=== PATIENT | male | born 1995 | race Caucasian/White ===

== ENCOUNTER 2017-04-19 15:52 | Emergency (ER) | payer BC, OTHER ==
[2017-04-19 16:08] VITALS: BP 145/98
--- NOTE | 2017-04-19 16:56 | UC ---
Abdominal Pain Male HPI - HPI Summary HPI Summary: 21 yo male with onset of periumbilical pain 2 evenings ago nausea anorexia pain is constant and usually mild but at times is severe increases with movement last PM both testicles mildly ached - History of Current Complaint Chief Complaint: UCGU Stated Complaint: ABDOMINAL PAIN/TESTES PAIN Time Seen by Provider: 04/19/17 16:15 Hx Obtained From: Patient Onset/Duration: Gradual Onset, Lasting Days Timing: Constant Severity Initially: Mild Severity Currently: Mild Pain Intensity: 3 - at times a 8-10 Pain Scale Used: 0-10 Numeric Location: Epigastric - /periumbilical Radiates: No Character: Aching, Dull Aggravating Factor(s):: Food, Movement Alleviating Factor(s): Rest Associated Signs And Symptoms: Positive: Nausea Male Torso: 1 - states it hurts here 2 - most tender here - Risk Factors Testicular Torsion: Negative Cardiac Risk Factors: Negative - Allergies/Home Medications Allergies/Adverse Reactions: Allergies Allergy/AdvReac Type Severity Reaction Status Date / Time No Known Allergies Allergy Verified 04/19/17 16:08 Home Medications: Home Medications Bismuth Subsalicylate [Pepto-Bismol Max Strength] 30 ml PO ONCE PRN 04/19/17 [ History Confirmed 04/19/17] Multiple Vitamins W/ Minerals [Multivitamin Adults] 1 tab PO DAILY 04/19/17 [ History Confirmed 04/19/17] [place]-3 Fatty Acids [Fish Oil] 500 mg PO DAILY 04/19/17 [History Confirmed 04/19] Simethicone [Gas-X Extra Strength] 125 mg PO ONCE PRN 04/19/17 [History Confirmed 04/19/17] PMH/Surg Hx/FS Hx/Imm Hx Previously Healthy: Yes - Surgical History Surgical History: None - Family History Known Family History: Positive: Hypertension Negative: Cardiac Disease, Diabetes, Renal Disease - Social History Alcohol Use: Occasionally Substance Use Type: None Smoking Status (MU): Never Smoked Tobacco Review of Systems Constitutional: Negative Skin: Negative Eyes: Negative ENT: Negative Respiratory: Negative Cardiovascular: Negative Gastrointestinal: Abdominal Pain, Nausea Genitourinary: Negative Motor: Negative Neurovascular: Negative Musculoskeletal: Negative Neurological: Negative Psychological: Negative All Other Systems Reviewed And Are Negative: Yes Physical Exam Triage Information Reviewed: Yes Appearance: Well-Appearing, No Pain Distress, Well-Nourished Vital Signs: Initial Vital Signs Temp 99 F 04/19/17 16:03 Pulse 88 04/19/17 16:03 Resp 20 04/19/17 16:03 BP 145/98 04/19/17 16:03 Pulse Ox 100 04/19/17 16:03 Vital Signs Reviewed: Yes Eyes: Positive: Conjunctiva Clear ENT: Positive: Hearing grossly normal, Pharynx normal. Negative: Pharyngeal erythema, Nasal congestion, Nasal drainage, Tonsillar swelling, Tonsillar exudate, Trismus, Muffled/hoarse voice Neck: Positive: Supple, Nontender, No Lymphadenopathy Respiratory: Positive: Lungs clear, Normal breath sounds, No respiratory distress, No accessory muscle use Cardiovascular: Positive: RRR, No Murmur. Negative: Tachycardia, Bradycardia Abdomen Description: Positive: No Organomegaly, Soft, McBurney's Point Tenderness - +++. Negative: Nontender, CVA Tenderness (R), CVA Tenderness (L), Hernia @, Pulsatile Mass, Splenomegaly Musculoskeletal: Positive: ROM Intact, No Edema Neurological: Positive: Alert Psychological Exam: Normal Skin Exam: Normal Abd Pain Male Course/Dx - Course Course Of Treatment: urine dip : no blood/wbcs/glucose. I suggested he go to the ER for evaluation to r/o appendicitis. He declines EMS transfer and signed AMA form. Advised not to eat or drink and go straight to the ER. I called [facility] ER and spoke with "Fransiscot the provider" and relayed my concerns. They will be expecting him. - Differential Dx/Clinical Impression Provider Diagnoses: abdominal pain. RLQ abdominal tenderness , R/O appendicitis Discharge - Discharge Plan Condition: Good Disposition: AGAINST MEDICAL ADVICE Referrals: Kirill Chery MD [Primary Care Provider] -
== END 2017-04-19 16:53 | disposition left against medical advice (07) ==
LOC: UCCORT 15:52
DX: R10.31 Right lower quadrant pain (principal)
CPT/HCPCS: 81003; 99202; G0463

== ENCOUNTER 2017-04-28 12:30 | Emergency (ER) | payer OTHER ==
[~2017-04-28 12:30] MED LIST: Influenza VAC *QUAD* 2017-18* 0.5 ML SYRINGE IM ONE
[2017-04-28 12:43] VITALS: BP 158/92
--- NOTE | 2017-04-28 13:17 | UC ---
Skin Complaint HPI - HPI Summary HPI Summary: 21 yo male was seen by me 04/19 with RLQ abd pain Sent to [facility] Was admitted for a few days Was told his CT of the abd and pelvis was c/w Crohns disease Has an appt for next Wednesday with GI doc Developed rash in hospital and was started on prednisone 60 mg to start now on 20mg pred a day has muscle aches some intermittent diarrhea no f/c abd pain gone - History of Current Complaint Chief Complaint: UCRash Time Seen by Provider: 04/28/17 12:56 Stated Complaint: RASH Hx Obtained From: Patient Onset/Duration: Sudden Onset, Lasting Days Onset Severity: Mild Current Severity: Severe Pain Intensity: 0 Pain Scale Used: 0-10 Numeric Location: Other - worse thighs and ankles Character: Redness, Raised Aggravating: Nothing Alleviating: Nothing Associated Signs & Symptoms: Positive: Rash - Allergy/Home Medications Allergies/Adverse Reactions: Allergies Allergy/AdvReac Type Severity Reaction Status Date / Time No Known Allergies Allergy Verified 04/28/17 12:43 Home Medications: Home Medications Pantoprazole TAB (NF) [Protonix TAB (NF)] 1 tab PO DAILY 04/28/17 [History Confirmed 04/28/17] predniSONE TAB* [Deltasone TAB*] 20 mg PO DAILY 04/28/17 [History Confirmed 02/06] Review of Systems Constitutional: Negative Skin: Rash Eyes: Negative ENT: Negative Respiratory: Negative Cardiovascular: Negative Gastrointestinal: Negative Genitourinary: Negative Motor: Negative Neurovascular: Negative Musculoskeletal: Negative Neurological: Negative Psychological: Negative All Other Systems Reviewed And Are Negative: Yes PMH/Surg Hx/FS Hx/Imm Hx Previously Healthy: Yes - Surgical History Surgical History: None - Family History Known Family History: Positive: Hypertension, Other - no FHx of Crohns or UC Negative: Cardiac Disease, Diabetes, Renal Disease - Social History Alcohol Use: Occasionally Substance Use Type: None Smoking Status (MU): Never Smoked Tobacco Physical Exam Triage Information Reviewed: Yes Appearance: Well-Appearing, No Pain Distress, Well-Nourished Vital Signs: Initial Vital Signs Temp 99 F 04/28/17 12:37 Pulse 95 04/28/17 12:37 Resp 15 04/28/17 12:37 BP 158/92 04/28/17 12:37 Pulse Ox 99 04/28/17 12:37 Vital Signs Reviewed: Yes Eyes: Positive: Conjunctiva Clear ENT: Positive: Hearing grossly normal, Pharynx normal. Negative: Nasal congestion, Nasal drainage, Tonsillar exudate, Trismus, Muffled/hoarse voice Neck: Positive: Supple, Nontender Respiratory: Positive: Lungs clear, Normal breath sounds, No respiratory distress, No accessory muscle use Cardiovascular: Positive: RRR, No Murmur Abdomen Description: Positive: Nontender, No Organomegaly Psychological Exam: Normal Skin Exam: Other - palpable purpura Course/Dx - Diagnoses Provider Diagnoses: vasculitis. ?Crohns disease Discharge - Discharge Plan Condition: Stable Disposition: HOME Patient Education Materials: Purpura (ED) Referrals: Kirill Chery MD [Primary Care Provider] - 2 Days Additional Instructions: continue prednisone taper see your MD this week see gi doc Wednesday as planned to ER for new or worsening symptoms
[2017-04-28 17:02] LABS: Hematocrit 44 % (42-52); Hemoglobin 14.9 g/dl (14.0-18.0); Mean Corpuscular HGB Conc 34 g/dl (31-36); Mean Corpuscular Hemoglobin 31 pg (27-31); Mean Corpuscular Volume 92 fL (80-94); Mean Platelet Volume 8 um3 (7.4-10.4); Red Blood Count 4.75 10^6/ul (4.0-5.4); Red Cell Distribution Width 12 % (10.5-15)
[2017-04-28 18:39] LABS: Erythrocyte Sed Rate 10 mm/Hr (0-14)
[2017-04-28 20:19] LABS: Albumin 4.1 g/dL (3.2-5.2); BUN/Creatinine Ratio 13.3 (8-20); Calcium 9.2 mg/dL (8.6-10.3); EGFR African American 103.4 (>60); EGFR Non-African American 80.4 (>60); Globulin 3.1 g/dL (2-4); Potassium 3.9 mmol/L (3.5-5.0); Total Bilirubin 0.5 mg/dL (0.2-1.0); Total Protein 7.2 g/dL (6.4-8.9)
--- NOTE | 2017-04-29 11:00 | UC ---
Progress - Progress Note Progress Note: WBC 11.0 Will call patient to follow up and check on condition. Carson Brumfield MD
== END 2017-04-28 13:37 | disposition home or self-care (01) ==
LOC: UCEAST 12:30
DX: I77.6 Arteritis, unspecified (principal); Z23 Encounter for immunization
CPT/HCPCS: 36415; 80053; 81003; 85025; 85652; 90686; 99211; G0463

== ENCOUNTER 2017-04-29 08:58 | Inpatient (IN) | payer OTHER ==
[2017-04-29] MEDS ORDERED: Ondansetron INJ* 2 MG/ML VIAL IV ONE (11:32)
[2017-04-29] MEDS ORDERED: Morphine INJ* 2 MG/ML 1 ML CARPUJECT IV ONE ×2 (11:32→12:32)
[2017-04-29 12:14] LABS: Hematocrit 45 % (42-52); Hemoglobin 15.4 g/dl (14.0-18.0); Mean Corpuscular HGB Conc 34 g/dl (31-36); Mean Corpuscular Hemoglobin 32 pg (27-31); Mean Corpuscular Volume 93 fL (80-94); Mean Platelet Volume 7 um3 (7.4-10.4); Red Blood Count 4.84 10^6/ul (4.0-5.4); Red Cell Distribution Width 13 % (10.5-15); White Blood Count 18.3 10^3/ul (3.5-10.8)
[2017-04-29 12:25] LABS: Albumin 4.1 g/dL (3.2-5.2); BUN/Creatinine Ratio 17.6 (8-20); C Reactive Protein 19.37 mg/L (< 5.00); Calcium 9.2 mg/dL (8.6-10.3); EGFR African American 132.8 (>60); EGFR Non-African American 103.2 (>60); Globulin 3.5 g/dL (2-4); Magnesium 2.2 mg/dL (1.9-2.7); Total Bilirubin 0.5 mg/dL (0.2-1.0); Total Protein 7.6 g/dL (6.4-8.9)
--- NOTE | 2017-04-29 12:36 | ED ---
Abdominal Pain/Male - HPI Summary HPI Summary: Patient presents to the ED with CC of severe 9/10 periumbilical abdominal pain which began this morning and associated with N/V/D. He notes to 3x vomiting without hematemesis, diarrhea without melena BRB. Color is brown and watery since this morning x 2. He was seen at yesterday for a diffuse morbilloform macular rash which appeared to be associated with a IBD rash. He was started on Prednisone the week before, and was told to continue his taper. He was seen at [facility] last week and diagnosed with possible Crohn colitis based both on CT scan and small bowel follow through. No family history of IBD. ESR was negative and CRP was 40. He was referred to DR. Amin for which he has an appt on Wednesday. Small bowel xray showed mild mucosal edema noted in the distal ileum with sparing of the terminal ileum consistent with ileitis. No abnormal extravasation of fistulous communications seen. no evidence of bowel obstruction with prompt clearance of the gastrografin into the cecum within 30 minutes. WBC at that time 10.9, today at 18.0. Denies fevers, sweats, chills or weakness. He has been otherwise healthy until 2 weeks ago. - History of Current Complaint Chief Complaint: EDAbdPain Stated Complaint: ABD PAIN,VOMITTING,RASH Time Seen by Provider: 04/29/17 11:24 Hx Obtained From: Patient Onset/Duration: Sudden Onset Timing: Constant Severity Initially: Severe Severity Currently: Severe Pain Intensity: 8 Pain Scale Used: 0-10 Numeric Location: Umbilical Radiates: No Character: Dull, Cramping Aggravating Factor(s): Nothing Alleviating Factor(s): Vomiting - briefly, Other: - diarrhea, briefly Associated Signs And Symptoms: Positive: Vomiting, Diarrhea - Risk Factors Testicular Torsion: Negative Cardiac Risk Factors: Negative - Allergies/Home Medications Allergies/Adverse Reactions: Allergies Allergy/AdvReac Type Severity Reaction Status Date / Time No Known Allergies Allergy Verified 04/28/17 12:43 PMH/Surg Hx/FS Hx/Imm Hx Previously Healthy: Yes - Immunization History Hx Pertussis Vaccination: No Immunizations Up to Date: Unable to Obtain/Confirm Infectious Disease History: No Infectious Disease History: Denies: Traveled Outside the [place] in Last 30 Days - Family History Known Family History: Positive: Hypertension, Other - no FHx of Crohns or UC Negative: Cardiac Disease, Diabetes, Renal Disease - Social History Occupation: Employed Full-time Lives: With Family Alcohol Use: Occasionally Hx Substance Use: No Substance Use Type: Reports: None Hx Tobacco Use: No Smoking Status (MU): Never Smoked Tobacco Review of Systems Constitutional: Negative Negative: Fever, Chills, Fatigue, Skin Diaphoresis Eyes: Negative Cardiovascular: Negative Respiratory: Negative Positive: Abdominal Pain, Vomiting, Diarrhea, Nausea Genitourinary: Negative Positive: no symptoms reported, see HPI. Negative: burning, discharge Musculoskeletal: Negative Negative: Arthralgia, Myalgia, Decreased ROM Positive: Other - diffuse morbilloform macular rash to the bilateral lower extremities since 2 days ago Neurological: Negative Psychological: Normal All Other Systems Reviewed And Are Negative: Yes Physical Exam Triage Information Reviewed: Yes Vital Signs On Initial Exam: Initial Vitals Temp Pulse Resp BP Pulse Ox 99.1 F 82 20 167/100 98 04/29/17 09:11 04/29/17 09:11 04/29/17 09:11 04/29/17 09:11 04/29/17 09:11 Vital Signs Reviewed: Yes Appearance: Positive: Well-Appearing, Well-Nourished Skin: Positive: Warm, Skin Color Reflects Adequate Perfusion Head/Face: Positive: Normal Head/Face Inspection Eyes: Positive: EOMI, TJ, Conjunctiva Clear Neck: Positive: Supple, Nontender, No Lymphadenopathy Respiratory/Lung Sounds: Positive: Clear to Auscultation, Breath Sounds Present Cardiovascular: Positive: RRR, Pulses are Symmetrical in both Upper and Lower Extremities Abdomen Description: Positive: Soft, Guarding. Negative: No Organomegaly, Bruit , CVA Tenderness (R), CVA Tenderness (L) Musculoskeletal: Positive: Normal, Strength/ROM Intact Neurological: Positive: Sensory/Motor Intact, Alert, Oriented to Person Place, Time, Speech Normal Psychiatric: Positive: Normal AVPU Assessment: Alert - [place] Coma Scale Coma Scale Total: 15 Diagnostics - Vital Signs Vital Signs Temp Pulse Resp BP Pulse Ox 04/29/17 11:48 16 04/29/17 11:04 98.2 F 84 16 160/93 96 04/29/17 09:11 99.1 F 82 20 167/100 98 - Laboratory Lab Results: Lab Results 04/29/17 04/29/17 04/29/17 Range/Units 11:47 11:47 11:47 WBC 18.3 H (3.5-10.8) 10^3/ul RBC 4.84 (4.0-5.4) 10^6/ul Hgb 15.4 (14.0-18.0) g/dl Hct 45 (42-52) % MCV 93 (80-94) fL MCH 32 H (27-31) pg MCHC 34 (31-36) g/dl RDW 13 (10.5-15) % Plt Count 295 (150-450) 10^3/ul MPV 7 L (7.4-10.4) um3 Neut % (Auto) 83.1 H (38-83) % Lymph % (Auto) 8.2 L (25-47) % [place] % (Auto) 7.6 (1-9) % Eos % (Auto) 0.9 (0-6) % Baso % (Auto) 0.2 (0-2) % Absolute Neuts (auto) 15.2 H (1.5-7.7) 10^3/ul Absolute Lymphs (auto) 1.5 (1.0-4.8) 10^3/ul Absolute Monos (auto) 1.4 H (0-0.8) 10^3/ul Absolute Eos (auto) 0.2 (0-0.6) 10^3/ul Absolute Basos (auto) 0 (0-0.2) 10^3/ul Absolute Nucleated RBC 0 10^3/ul Nucleated RBC % 0 Sodium 137 (133-145) mmol/L Potassium 4.0 (3.5-5.0) mmol/L Chloride 103 (101-111) mmol/L Carbon Dioxide 26 (22-32) mmol/L Anion Gap 8 (2-11) mmol/L BUN 16 (6-24) mg/dL Creatinine 0.91 (0.67-1.17) mg/dL Est GFR ( Amer) 132.8 (>60) Est GFR (Non-Af Amer) 103.2 (>60) BUN/Creatinine Ratio 17.6 (8-20) Glucose 95 (70-100) mg/dL Lactic Acid 1.5 (0.5-2.0) mmol/L Calcium 9.2 (8.6-10.3) mg/dL Magnesium 2.2 (1.9-2.7) mg/dL Total Bilirubin 0.50 (0.2-1.0) mg/dL AST 37 (13-39) U/L ALT 53 H (7-52) U/L Alkaline Phosphatase 65 (34-104) U/L Total Creatine Kinase 563 H (10-223) U/L C-Reactive Protein 19.37 H (< 5.00) mg/L Total Protein 7.6 (6.4-8.9) g/dL Albumin 4.1 (3.2-5.2) g/dL Globulin 3.5 (2-4) g/dL Albumin/Globulin Ratio 1.2 (1-3) Lipase 17 (11.0-82.0) U/L Result Diagrams: 04/29/17 11:47 04/29/17 11:47 Lab Statement: Any lab studies that have been ordered have been reviewed, and results considered in the medical decision making process. Re-Evaluation - Re-Evaluation First Eval Change: Unchanged - 4mg IV morphine Second Eval Change: Improved - 4mg Iv morphine to improve pain Abdominal Pain Fem Course/Dx - Course Course Of Treatment: Patient presents to the ED with CC of severe 9/10 periumbilical abdominal pain which began this morning and associated with N/V/ D. He notes to 3x vomiting without hematemesis, diarrhea without melena BRB. Color is brown and watery since this morning x 2. He was seen at yesterday for a diffuse morbilloform macular rash which appeared to be associated with a IBD rash. He was started on Prednisone the week before, and was told to continue his taper. He was seen at [facility] last week and diagnosed with possible Crohn colitis based both on CT scan and small bowel follow through. No family history of IBD. ESR was negative and CRP was 40. He was referred to DR. Amin for which he has an appt on Wednesday. Small bowel xray showed mild mucosal edema noted in the distal ileum with sparing of the terminal ileum consistent with ileitis. No abnormal extravasation of fistulous communications seen. no evidence of bowel obstruction with prompt clearance of the gastrografin into the cecum within 30 minutes. WBC at that time 10.9, today at 18.0. Denies fevers, sweats, chills or weakness. He has been otherwise healthy until 2 weeks ago. D/t CT scan, we did not perform another CT at this time. Spoke with Dr. Washington who agreed to observe patient. No GI coverage at this time. Gave (2) 4mg IV morphine to bring pain from 10/10 to 5/10. Zofran 4mg IV with effect. He is resting comfortably. is at bedside. BP elevated most likely d/t pain of abdomen - no cardiac history. - Diagnoses Differential Diagnosis/HQI/PQRI: Bowel Obstruction, Ischemic Bowel, Other - IBD , Crohns, Ulcerative Colitis, Ischemic Colitis, Viral gastroenteritis, Morbilloform Rash Provider Diagnoses: Combined abdominal pain, vomiting, and diarrhea Discharge - Discharge Plan Condition: Stable Disposition: ADMITTED TO [facility]
[2017-04-29 14:02] LABS: Erythrocyte Sed Rate 11 mm/Hr (0-14)
[2017-04-29] MEDS ORDERED: HYDROcodone/ACETAMIN 5-325 MG* 1 TAB PO PRN (15:12)
[2017-04-29] MEDS ORDERED: Acetaminophen TAB* 325 MG PO PRN (15:12)
[2017-04-29] MEDS ORDERED: Ondansetron INJ* 2 MG/ML VIAL IV PRN (15:13)
[2017-04-29] MEDS: Morphine INJ* 4 MG/ML 1 ML CARPUJECT IV PRN ×2 (15:57→21:33)
[2017-04-29] MEDS: NS 0.9% 1000 ML* 1,000 ML IV SCH (16:41)
[2017-04-29] MEDS: Ciprofloxacin 400MG IVPREMIX(* 400 MG/200 ML BAG IVPB SCH (16:44)
[2017-04-29] MEDS: metroNIDAZOLE IV 500 MG/100ML* 500 MG/100 ML BAG IVPB SCH (17:51)
--- NOTE | 2017-04-29 21:38 | HP ---
CC: Dr. Chery * HISTORY AND PHYSICAL: DATE OF ADMISSION: 04/29/17 PRIMARY CARE PROVIDER: Dr. Chery (the patient has never seen before). CHIEF COMPLAINT: Abdominal pain. HISTORY OF PRESENT ILLNESS: Mr. Mosquera is a 21-year-old male who on 04/19/17 presented to Urgent Care for evaluation of periumbilical to right lower quadrant abdominal pain. The patient at that time was felt to have possibly appendicitis and therefore was sent to the emergency room at [place] for evaluation. In the ER at [place], the patient underwent a CT scan of the abdomen and pelvis, which revealed bowel wall thickening noted within several loops of small bowel within the right lower abdominal quadrant. The differential diagnoses include infectious and an inflammatory process. Slightly increased number of normal appearing lymph nodes within the mesentery was noted. The patient was admitted to [facility] for evaluation. He was seen in consultation by Dr. Viramontes. Dr. Viramontes recommended a small bowel series with Gastrografin. The patient underwent this test, which revealed transient time to the small bowel being within normal limits. Mild mucosal edematous changes are noted in the ileum with sparing of the terminal ileum, which is similar in appearance to 04/19/17. The small bowel distention is not seen. The mild mucosal edema noted in the distal ileum with sparing of the terminal ileum was felt to be consistent with ileitis. The differential diagnoses included infectious ileitis and inflammatory bowel disease. The patient was started on prednisone taper and set up to see Dr. Viramontes as an outpatient. The patient states during the period of time, his abdominal pain did improve. He was also having some diarrhea and stool studies on this were negative for infection. Over the last 1 week, the patient noted that his abdominal remained resolved; however, rash that began while he was in the hospital at [place] progressively worsened to the point where 2 nights ago, the rash was quite severe and therefore yesterday he presented to Urgent Care for evaluation of the rash. As the patient had been given presumptive diagnosis of possible Crohn's disease from [facility], it was felt that the rash could be an extraintestinal manifestations of Crohn's disease. The patient was recommended to continue on his prednisone taper and follow up with Dr. Viramontes as an outpatient. On 04/29/17, the patient represented to the emergency room with complaints of severe and much worsened abdominal pain. The patient states this morning, he had several episodes of diarrhea, which was nonbloody as well as 2 to 3 episodes of vomiting. He denies any fevers or chills over the last several days. He states his appetite has been fine up until today. He has no family history of inflammatory bowel disease. He denies any weight loss. He denies frequent diarrhea. PAST MEDICAL HISTORY: None. PAST SURGICAL HISTORY: None. MEDICATIONS: 1. Men's One a Day multivitamin 1 tab p.o. daily. 2. Fish oil 1000 mg p.o. daily. 3. Prednisone taper currently on 20 mg p.o. daily tapering to 10 mg p.o. daily for 3 more days supposed to be starting tomorrow. ALLERGIES: No known drug allergies. FAMILY HISTORY: Mom is living, she is 47 and healthy. Dad is living, he is 52. He had a history of throat cancer. SOCIAL HISTORY: The patient is a nonsmoker. He drinks 1 to 2 beers approximately once per week. 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 He is . He has an [id number] and his is with his second child. His , Kaylee, would be his healthcare proxy. REVIEW OF SYSTEMS: A complete 11-system review of systems was obtained. Pertinent positives and negatives are as per HPI and otherwise negative. PHYSICAL EXAMINATION GENERAL: The patient is a well-developed, obese, young male, lying in bed, in no acute distress. VITAL SIGNS: Blood pressure 157/91, pulse 73, respirations 18, temp 98.4, O2 sat 99% on room air. HEENT: Pupils are equal. They are round. Extraocular muscles are intact. Oropharynx is clear. Oral mucosa is moist. There is no submandibular, cervical , or supraclavicular adenopathy. Thyroid is not enlarged. No thyroid nodules are noted. PULMONARY: Lungs are clear to auscultation bilaterally. CARDIAC: Normal S1 and S2. Regular rate and rhythm. I do not appreciate any murmurs. There is trace lower extremity edema. ABDOMEN: Bowel sounds are present. Abdomen is soft, nondistended and mildly tender to palpation in the bilateral lower quadrants, but most of the pain is located in the infraumbilical area. MUSCULOSKELETAL: There is no cyanosis or clubbing of the digits. There is full active range of motion of all 4 extremities. SKIN: Warm, it is dry. The patient has what appears to be palpable purpura on the patient's bilateral lower extremities, lower abdominal wall, and slight amount rash is noted to the patient's upper extremities. NEURO: Cranial nerves II through XII are grossly intact. Sensation is intact to light touch throughout. Strength is 5/5 and symmetric in both upper and lower extremities bilaterally. PSYCH: The patient is alert. He is oriented x3. Affect appears appropriate. LABORATORY DATA/DIAGNOSTIC STUDIES: WBC 18.3, hemoglobin 15.4, hematocrit 45, and platelets 295. Sodium 137, potassium 4.0, chloride 103, CO2 26, BUN 16, creatinine 0.91, glucose 95, lactic acid 1.5, calcium 9.2, magnesium 2.2. Bilirubin 0.5, AST 37, ALT 53, alk phos 65, CPK 563, CRP 19.37. Albumin 4.1. Lipase 17, B12 level 360. ASSESSMENT AND PLAN: Mr. Mosquera is a 21-year-old male whose story begins approximately 2 weeks ago with complaints of abdominal pain for which he was hospitalized and given presumptive diagnosis of possible Crohn's disease without endoscopy to confirm this who now represents to emergency room after having worsening rash and now worsened abdominal pain. 1. Abdominal pain. I do agree inflammatory bowel disease is in the differential; however, it does appear that the patient's colon is completely spared based on the imaging from [facility]. I am concerned that these findings could represent an infectious process especially given the sudden onset. The patient will need colonoscopy to make a definitive diagnosis. The patient's CRP was noted to be 40 at [place] (per report) and it is now down to 19.37. The patient has been on a prednisone taper. I am going to hold his prednisone for now. I am going to start him on ciprofloxacin and Flagyl given the elevated white blood cell count. He has had fever as high as 99.2 in the emergency room. This will be monitored. GI consultation will be requested tomorrow. Again, I am holding off on steroids at this point as I am now 100% convinced that the patient's symptoms or imaging studies are consistent enough with inflammatory bowel disease to initiate steroids. The patient will have Tylenol and [place] for mild pain and morphine available for more severe pain. If the patient has a bowel movement, the stool will be sent to the lab for testing for C. difficile colitis, fecal lactoferrin, and stool culture. 2. Palpable purpura. 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 It is possible this could be related to inflammatory bowel disease. If inflammatory bowel disease is identified, I do not think any further evaluation of the rash will be needed; however, the patient is ruled out for inflammatory bowel disease, he may need further evaluation of the rash with punch biopsy and Dermatology or Rheumatology evaluation. 3. Hypertension. The patient's blood pressure is moderately elevated. He does not carry a history of hypertension. As he is in pain, I will monitor this for now; however, if his blood pressure remains this elevated, he will be started on any antihypertensive. 4. DVT prophylaxis. According to the Adult Thrombosis Prophylaxis Risk Factor Assessment Guide, the patient has a total risk factor score of 1 making him low risk. Ambulation will be utilized as DVT prophylaxis. 5. Code status is full. [id number]/[facility] #: [id number] MTDD
[2017-04-30] MEDS: Morphine INJ* 4 MG/ML 1 ML CARPUJECT IV PRN ×2 (03:07→13:10)
[2017-04-30] MEDS: Ciprofloxacin 400MG IVPREMIX(* 400 MG/200 ML BAG IVPB SCH ×2 (03:08→15:16)
[2017-04-30 03:31] LABS: Urine Bilirubin Negative (Negative); Urine Glucose Negative (Negative); Urine Nitrite Negative (Negative)
[2017-04-30] MEDS: metroNIDAZOLE IV 500 MG/100ML* 500 MG/100 ML BAG IVPB SCH ×2 (04:24→16:40)
[2017-04-30 06:03] LABS: Hematocrit 42 % (42-52); Mean Corpuscular HGB Conc 34 g/dl (31-36); Mean Corpuscular Hemoglobin 31 pg (27-31); Mean Corpuscular Volume 93 fL (80-94); Mean Platelet Volume 7 um3 (7.4-10.4); Red Blood Count 4.47 10^6/ul (4.0-5.4); Red Cell Distribution Width 13 % (10.5-15); White Blood Count 17.2 10^3/ul (3.5-10.8)
[2017-04-30] MEDS: NS 0.9% 1000 ML* 1,000 ML IV SCH ×2 (06:12→16:40)
--- NOTE | 2017-04-30 11:54 | PN ---
Subjective Date of Service: 04/30/17 Interval History: Pt is feeling a little better today. His pain continues. He has not had any diarrhea. His rash has spread a little more to his arms. Objective Active Medications: Acetaminophen (Tylenol Tab*) 650 mg PO Q4H PRN PRN Reason: PAIN Hydrocodone Bitart/Acetaminophen ([place] 5-325 Tab*) 1 tab PO Q4H PRN PRN Reason: PAIN Last Admin: 04/29/17 23:56 Dose: 1 tab Ciprofloxacin/Dextrose (Cipro 400 Mg Ivpremix(*)) 400 mg in 200 mls @ 200 mls/ hr IVPB Q12H [facility] Last Admin: 04/30/17 03:08 Dose: 200 mls/hr Sodium Chloride (Ns 0.9% 1000 Ml*) 1,000 mls @ 100 mls/hr IV PER RATE [facility] Last Admin: 04/30/17 06:12 Dose: 100 mls/hr Metronidazole/Sodium Chloride (Flagyl 500 Mg Ivpb*) 500 mg in 100 mls @ 100 mls /hr IVPB Q12H [facility] Last Admin: 04/30/17 04:24 Dose: 100 mls/hr Morphine Sulfate (Morphine Inj (Syringe)*) 4 mg IV Q4H PRN PRN Reason: PAIN - MILD Last Admin: 04/30/17 03:07 Dose: 4 mg Ondansetron HCl (Zofran Inj*) 4 mg IV Q6H PRN PRN Reason: NAUSEA Vital Signs 04/29/17 04/29/17 04/29/17 15:04 15:57 16:57 Temperature 98.4 F Pulse Rate 73 Respiratory 18 18 16 Rate Blood Pressure 157/91 (mmHg) O2 Sat by Pulse 99 Oximetry 04/29/17 04/29/17 04/29/17 19:47 20:00 21:33 Temperature 98.5 F Pulse Rate 71 Respiratory 20 22 22 Rate Blood Pressure 153/81 (mmHg) O2 Sat by Pulse 100 Oximetry 04/29/17 04/29/17 04/30/17 22:33 23:56 00:01 Temperature 98.8 F Pulse Rate 83 Respiratory 16 22 16 Rate Blood Pressure 155/84 (mmHg) O2 Sat by Pulse 98 Oximetry 04/30/17 04/30/17 04/30/17 01:56 03:07 04:07 Temperature Pulse Rate Respiratory 18 18 16 Rate Blood Pressure (mmHg) O2 Sat by Pulse Oximetry 04/30/17 04/30/17 04/30/17 04:34 08:03 09:23 Temperature 98.6 F 98.7 F Pulse Rate 78 79 Respiratory 16 16 18 Rate Blood Pressure 147/87 148/83 (mmHg) O2 Sat by Pulse 97 99 Oximetry Oxygen Devices in Use Now: None Appearance: Young male lying in bed, NAD Eyes: No Scleral Icterus Ears/Nose/Mouth/Throat: Mucous Membranes Moist Respiratory: Symmetrical Chest Expansion and Respiratory Effort, Clear to Auscultation Cardiovascular: NL Sounds; No Murmurs; No JVD, RRR, No Edema Abdominal: - - BS+ soft, ND, mildly tender to palpation Extremities: No Clubbing, Cyanosis Skin: No Nodules or Sclerosis, - - +palpable purpura to legs, abdomen and upper arms Neurological: Alert and Oriented x 3 Result Diagrams: 04/30/17 05:30 04/29/17 11:47 Additional Lab and Data: Lab Results 04/29/17 04/29/17 04/29/17 Range/Units 11:47 11:47 11:47 WBC 18.3 H (3.5-10.8) 10^3/ul RBC 4.84 (4.0-5.4) 10^6/ul Hgb 15.4 (14.0-18.0) g/dl Hct 45 (42-52) % MCV 93 (80-94) fL MCH 32 H (27-31) pg MCHC 34 (31-36) g/dl RDW 13 (10.5-15) % Plt Count 295 (150-450) 10^3/ul MPV 7 L (7.4-10.4) um3 Neut % (Auto) 83.1 H (38-83) % Lymph % (Auto) 8.2 L (25-47) % Keith % (Auto) 7.6 (1-9) % Eos % (Auto) 0.9 (0-6) % Baso % (Auto) 0.2 (0-2) % Absolute Neuts (auto) 15.2 H (1.5-7.7) 10^3/ul Absolute Lymphs (auto) 1.5 (1.0-4.8) 10^3/ul Absolute Monos (auto) 1.4 H (0-0.8) 10^3/ul Absolute Eos (auto) 0.2 (0-0.6) 10^3/ul Absolute Basos (auto) 0 (0-0.2) 10^3/ul Absolute Nucleated RBC 0 10^3/ul Nucleated RBC % 0 Sodium 137 (133-145) mmol/L Potassium 4.0 (3.5-5.0) mmol/L Chloride 103 (101-111) mmol/L Carbon Dioxide 26 (22-32) mmol/L Anion Gap 8 (2-11) mmol/L BUN 16 (6-24) mg/dL Creatinine 0.91 (0.67-1.17) mg/dL Est GFR ( Amer) 132.8 (>60) Est GFR (Non-Af Amer) 103.2 (>60) BUN/Creatinine Ratio 17.6 (8-20) Glucose 95 (70-100) mg/dL Lactic Acid 1.5 (0.5-2.0) mmol/L Calcium 9.2 (8.6-10.3) mg/dL Magnesium 2.2 (1.9-2.7) mg/dL Total Bilirubin 0.50 (0.2-1.0) mg/dL AST 37 (13-39) U/L ALT 53 H (7-52) U/L Alkaline Phosphatase 65 (34-104) U/L Total Creatine Kinase 563 H (10-223) U/L C-Reactive Protein 19.37 H (< 5.00) mg/L Total Protein 7.6 (6.4-8.9) g/dL Albumin 4.1 (3.2-5.2) g/dL Globulin 3.5 (2-4) g/dL Albumin/Globulin Ratio 1.2 (1-3) Lipase 17 (11.0-82.0) U/L Assess/Plan/Problems-Billing Mr Mosquera is a 21 yo M who began to have abdominal pain a couple weeks ago, was admitted to [facility] where he was given a presumptive dx of Crohn's, was feeling better, developed rash and then developed severe abdominal pain again and presented [place] [facility] and was admitted for evaluation. - Patient Problems (1) Ileitis Current Visit: Yes Status: Acute Code(s): K52.9 - NONINFECTIVE GASTROENTERITIS AND COLITIS, UNSPECIFIED SNOMED Code(s): 30792367 Comment: The imaging from [place] revealed findings c/w ileitis. The terminal ileum was sparred on that imaging. Will continue cipro and flagyl for now. I have held steroids until a clear diagnosis is made. Dr. Lucas to see the patient today. He will need a colonoscopy in the near future. (2) Palpable purpura Current Visit: Yes Status: Acute Code(s): D69.2 - OTHER NONTHROMBOCYTOPENIC PURPURA SNOMED Code(s): 349818626 Comment: The patient had previously been told that the rash was likely related to the presumtive diagnosis of Crohn's disease. Will check FLORA and ANCA. (3) DVT prophylaxis Current Visit: Yes Status: Acute Code(s): QNU3272 - SNOMED Code(s): 248781536 Comment: ambulation (4) Full code status Current Visit: Yes Status: Acute Code(s): Z78.9 - OTHER SPECIFIED HEALTH STATUS SNOMED Code(s): 495701756
[2017-04-30] MEDS ORDERED: PEG 3000 GI LAVAGE* 1 GALLON PO ONE (20:00)
--- NOTE | 2017-04-30 23:56 | CONS ---
GASTROENTEROLOGY CONSULTATIO DATE: 04/30/17 CONSULTING PHYSICIAN: Dr. Rosalia Washington REASON FOR CONSULT: Abdominal discomfort and findings of small bowel edema on imaging in [place] and then a rash on the legs and lower abdomen, which is non - pruritic and non-bullous. HISTORY: This 21-year-old man was discharged from the [employer] after 4 years in July 2016, and during that time he never generally had any gastrointestinal problems. On Wednesday evening, 04/17/17, he experienced some pain around the belly button or little below, maybe a little more on the left side. He had a single diarrheal stool in the late evening. He slept okay. The next day he still had some discomfort but there were no more bowel movements and no vomiting or fever. On 04/19/17, he still was having some abdominal distress and he went to [facility] in [place] ([facility]) and with abdominal pain and concern about appendicitis, was sent to the [place] [facility]. Abdominal CT was said to show thickening of the small bowel especially ileum, but sparing the terminal ileum. He may have had 1 or 2 bowel movements that day. On 04/20/17, he had Gastrografin intestinal series, which was said to show edema. He was beginning to develop a rash. With a postulated diagnosis of Crohn's disease, he was given prednisone 40 mg and discharged. He went home on bed rest and was eating okay, having 2 to 3 stools a day, stating there was no vomiting or fever or bleeding. He developed more abdominal pain on 04/29/17 and decided to come back to [facility] also with progressive rash. He was admitted. He did have some vomiting and more diarrhea on the day of admission. There is no family history of inflammatory bowel disease. Serologic markers for inflammatory bowel disease may have been sent from [facility]. PAST MEDICAL HISTORY: Essentially none. MEDICATIONS: He does not take any herbal supplements. He does take a men's vitamin, fish oil (recommended when he complained of joint aching while in the service), and took approximately a week of tapering prednisone and a PPI. SOCIAL HISTORY: He is and has an [id number]. His is with their second. 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 REVIEW OF SYSTEMS: He was not ill while in the , discharged Jul 2016. His intention is to get a job with [employer]. He has not had any antibiotics in the last few months. No history of syncope, palpitations, hepatitis, renal stones, hematuria, migraines, seizures, prior rashes. PHYSICAL EXAM: He is a [id number] overweight young man, pleasant with morbilliform rash symmetrically over the lower trunk, a little less towards the back and upper buttocks and intensely involving the thighs and lower legs and slightly over the inner triceps. It is quite diffuse and finely papular. His lungs are clear. Heart sounds are normal. The abdomen is symmetric, soft without focal tenderness. Perianal inspection is normal and rectal is difficult given his body habitus but there is some bloody material in the finger without any particular pain. He states that his only bowel movement the last 24 hours was passing some bloody gas about 10 hours ago. He has had no other stool. LABORATORY DATA: CBC today hemoglobin 14.0, hematocrit 42, MCV 93, white count 17, sed rate 11. CRP 19.37. Bilirubin 0.5, ALT 53, alkaline phosphatase 65. Albumin 4.1. B12 360. Urinalysis is totally inactive with negative blood, negative protein, and negative white cells. IMPRESSION: This 21-year-old man has had a 2-week illness where he has had some vague but persisting abdominal distress, cramps, and now a rash. Vasculitis or Henoch-Schonlein purpura comes to mind initially given the appearance of the rash. It is not an erythema nodosum or pyoderma typically associated with inflammatory bowel disease. Given the abdominal pain and the thickening of the bowel on CT, colonoscopy would be of interest. He has had some vomiting and gastroscopy will be done synchronously. Inputs from other consultants including Rheumatology and Dermatology with skin biopsy could be useful. It is expected that prednisone will be resumed. [id number]/[facility] #: [id number] JARRED
[2017-05-01] MEDS: Ciprofloxacin 400MG IVPREMIX(* 400 MG/200 ML BAG IVPB SCH (04:51)
[2017-05-01] MEDS: NS 0.9% 1000 ML* 1,000 ML IV SCH ×2 (04:55→23:04)
[2017-05-01] MEDS: metroNIDAZOLE IV 500 MG/100ML* 500 MG/100 ML BAG IVPB SCH (06:32)
[2017-05-01] MEDS ORDERED: PEG 3000 GI LAVAGE* 1 GALLON PO ONE (09:00)
[2017-05-01] MEDS ORDERED: Influenza VAC *QUAD* 2017-18* 0.5 ML SYRINGE IM ONE (09:00)
[2017-05-01] MEDS ORDERED: Meperidine SYRINGE* 50 MG/ML ONE ×2 (11:15→12:11)
[2017-05-01] MEDS ORDERED: Midazolam* 1 MG/ML 10 ML VIAL (10 MG) ONE ×2 (11:15→12:11)
--- NOTE | 2017-05-01 14:28 | PN ---
Subjective Date of Service: 05/01/17 Interval History: Pt is feeling ok. He is sleepy. He denies any abdominal pain at this time. In thinking back to before he got sick he denies having any viral illness. He states his family has been well. He did go to a water park the day prior to having abdominal pain. Objective Active Medications: Acetaminophen (Tylenol Tab*) 650 mg PO Q4H PRN PRN Reason: PAIN Hydrocodone Bitart/Acetaminophen ([place] 5-325 Tab*) 1 tab PO Q4H PRN PRN Reason: PAIN Last Admin: 04/29/17 23:56 Dose: 1 tab Sodium Chloride (Ns 0.9% 1000 Ml*) 1,000 mls @ 100 mls/hr IV PER RATE [facility] Last Admin: 05/01/17 04:55 Dose: 100 mls/hr Morphine Sulfate (Morphine Inj (Syringe)*) 4 mg IV Q4H PRN PRN Reason: PAIN - MILD Last Admin: 04/30/17 13:10 Dose: 4 mg Ondansetron HCl (Zofran Inj*) 4 mg IV Q6H PRN PRN Reason: NAUSEA Vital Signs 04/30/17 04/30/17 04/30/17 20:00 20:15 23:39 Temperature 98.7 F 98.8 F Pulse Rate 87 84 Respiratory 20 18 16 Rate Blood Pressure 150/82 146/70 (mmHg) O2 Sat by Pulse 99 98 Oximetry 05/01/17 05/01/17 05/01/17 03:45 07:37 08:00 Temperature 98.3 F 98.1 F Pulse Rate 77 73 Respiratory 16 18 18 Rate Blood Pressure 133/71 126/72 (mmHg) O2 Sat by Pulse 98 99 Oximetry 05/01/17 08:39 Temperature Pulse Rate Respiratory 18 Rate Blood Pressure (mmHg) O2 Sat by Pulse Oximetry Oxygen Devices in Use Now: None Appearance: Young male sitting up in bed, NAD Eyes: No Scleral Icterus Ears/Nose/Mouth/Throat: Mucous Membranes Moist Respiratory: Symmetrical Chest Expansion and Respiratory Effort, Clear to Auscultation Cardiovascular: NL Sounds; No Murmurs; No JVD, RRR, No Edema Abdominal: NL Sounds; No Tenderness; No Distention Extremities: No Clubbing, Cyanosis Skin: No Rash or Ulcers, No Nodules or Sclerosis Neurological: Alert and Oriented x 3 Result Diagrams: 04/30/17 05:30 04/29/17 11:47 Additional Lab and Data: Lab Results 04/29/17 04/29/17 04/29/17 Range/Units 11:47 11:47 11:47 WBC 18.3 H (3.5-10.8) 10^3/ul RBC 4.84 (4.0-5.4) 10^6/ul Hgb 15.4 (14.0-18.0) g/dl Hct 45 (42-52) % MCV 93 (80-94) fL MCH 32 H (27-31) pg MCHC 34 (31-36) g/dl RDW 13 (10.5-15) % Plt Count 295 (150-450) 10^3/ul MPV 7 L (7.4-10.4) um3 Neut % (Auto) 83.1 H (38-83) % Lymph % (Auto) 8.2 L (25-47) % [place] % (Auto) 7.6 (1-9) % Eos % (Auto) 0.9 (0-6) % Baso % (Auto) 0.2 (0-2) % Absolute Neuts (auto) 15.2 H (1.5-7.7) 10^3/ul Absolute Lymphs (auto) 1.5 (1.0-4.8) 10^3/ul Absolute Monos (auto) 1.4 H (0-0.8) 10^3/ul Absolute Eos (auto) 0.2 (0-0.6) 10^3/ul Absolute Basos (auto) 0 (0-0.2) 10^3/ul Absolute Nucleated RBC 0 10^3/ul Nucleated RBC % 0 Sodium 137 (133-145) mmol/L Potassium 4.0 (3.5-5.0) mmol/L Chloride 103 (101-111) mmol/L Carbon Dioxide 26 (22-32) mmol/L Anion Gap 8 (2-11) mmol/L BUN 16 (6-24) mg/dL Creatinine 0.91 (0.67-1.17) mg/dL Est GFR ( Amer) 132.8 (>60) Est GFR (Non-Af Amer) 103.2 (>60) BUN/Creatinine Ratio 17.6 (8-20) Glucose 95 (70-100) mg/dL Lactic Acid 1.5 (0.5-2.0) mmol/L Calcium 9.2 (8.6-10.3) mg/dL Magnesium 2.2 (1.9-2.7) mg/dL Total Bilirubin 0.50 (0.2-1.0) mg/dL AST 37 (13-39) U/L ALT 53 H (7-52) U/L Alkaline Phosphatase 65 (34-104) U/L Total Creatine Kinase 563 H (10-223) U/L C-Reactive Protein 19.37 H (< 5.00) mg/L Total Protein 7.6 (6.4-8.9) g/dL Albumin 4.1 (3.2-5.2) g/dL Globulin 3.5 (2-4) g/dL Albumin/Globulin Ratio 1.2 (1-3) Lipase 17 (11.0-82.0) U/L Microbiology and Other Data: Microbiology 04/30/17 22:00 Stool Gross Appearance - Final Stool 04/30/17 22:00 Stool Gross Appearance - Final Stool C. difficile DNA Amplification - Final 027 Presumptive NEGATIVE Toxigenic C.diff NEGATIVE Stool Lactoferrin - Final Stool Occult Blood (ADRI) - Final Assess/Plan/Problems-Billing Mr Mosquera is a 21 yo M who began to have abdominal pain a couple weeks ago, was admitted to [facility] where he was given a presumptive dx of Crohn's, was feeling better, developed rash and then developed severe abdominal pain again and presented to [facility] and was admitted for evaluation. - Patient Problems (1) Ileitis Current Visit: Yes Status: Acute Code(s): K52.9 - NONINFECTIVE GASTROENTERITIS AND COLITIS, UNSPECIFIED SNOMED Code(s): 50439970 Comment: The patient underwent colonoscopy today that did not show evidence of Crohn's but did reveal ?ischemia of the ileum (spares the terminal ileum). Given this and the rash ? vasculitis. I have asked Dr. Strong to evaluate the patient today. He will likely need steroid treatment. (2) Palpable purpura Current Visit: Yes Status: Acute Code(s): D69.2 - OTHER NONTHROMBOCYTOPENIC PURPURA SNOMED Code(s): 525024050 Comment: FLORA and ANCA pending. ? punch biopsy. Dr. Strong to see today. (3) DVT prophylaxis Current Visit: Yes Status: Acute Code(s): VBA6591 - SNOMED Code(s): 158661980 Comment: ambulation (4) Full code status Current Visit: Yes Status: Acute Code(s): Z78.9 - OTHER SPECIFIED HEALTH STATUS SNOMED Code(s): 435316091
--- NOTE | 2017-05-01 15:17 | CONSULT ---
Consult Consult: Mr. Mosquera is a 21 year old man with recurrent abdominal pain, with an elevated CPK, ileitis (with sparing of the terminal ileum) and a vasculitic appearing rash. He may have an underlying systemic vasculitis explaining his symptoms. Also consider an atypical manifestation of a connective tissue disorder. I think that HSP is still in the differential, although his presentation is also atypical, and he has no hematuria. I will add several autoimmune serologies to the ones that are pending. It may be helpful to resume his prednisone at 40mg daily, but this could be held for now as his GI biopsy and repeat CT scan is still pending, and also because his overall symptoms seem to be gradually resolving, suggesting that he may still have a self limiting process. Will follow; thanks!
[2017-05-01 16:53] LABS: C-ANCA Negative (Negative)
[2017-05-01] MEDS: Iohexol 300* (CONTRAST) 10 ML SDV IV SCH ×2 (16:55→17:01)
--- NOTE | 2017-05-01 17:43 | RAD ---
CLINICAL HISTORY: Abdominal pain with clinical concern for Crohn's disease. COMPARISON: None TECHNIQUE: Contrast enhanced CT examination of the abdomen and pelvis from the lung bases through the initial tuberosities. The patient received 100 mL Omnipaque 300 intravenously prior to imaging.The patient received oral contrast as well prior to imaging. FINDINGS: VISUALIZED LUNG BASES: The visualized lung bases are grossly clear. There is no pleural effusion. ABDOMEN AND PELVIS: The liver is homogenously hypodense relative to the spleen. There are no focal hepatic masses or surface irregularity. The spleen is enlarged measuring 13.5 cm in greatest axial dimension. The pancreas and adrenal glands are grossly normal in appearance. The gallbladder is normal. The kidneys are normal in appearance without focal mass, calcification or signs of hydronephrosis. The oral contrast has progressed as far as the colon. There is thickening of the terminal ileum with the wall measuring up to 1 cm in thickness (for example coronal image 47 of 110). The cecum and transverse colon exhibits normal wall thickness but there are multiple air-fluid levels throughout this portion of the colon. There is thickening of the distal colon including the rectosigmoid colon (for example axial image 75). The contrast-filled appendix measures 6 mm in diameter does not exhibit focal inflammatory change (coronal image 52). Mesenteric lymph nodes are top normal in dimension measuring up to 9 mm in short access diameter (for example image 47 of 110). The lymphadenopathy is fairly diffuse along the mesenteric root but is predominantly seen overlying the right lower quadrant. There is trace free fluid in the pelvis. The abdominal aorta and iliac arteries are normal in course and diameter. There are no sinister bone lesions. IMPRESSION: 1. Focal inflammatory change and wall thickening involving the terminal ileum and rectosigmoid colon in the presence of trace ascites and mesenteric lymphadenopathy. This Constellation of findings is most consistent with inflammatory bowel disease. The presence of "skip lesions" favors Crohn's. Infectious enterocolitis is considered less likely. 2. CT findings are consistent with hepatic steatosis or other chronic infiltrative disease of the liver and mild splenomegaly.
--- NOTE | 2017-05-01 20:32 | CONS ---
CONSULTATION REPORT: DATE OF CONSULT: 05/01/17 CONSULTING PHYSICIAN: Dr. Rosalia Washington. REASON FOR CONSULTATION: Evaluate for vasculitis. HISTORY OF PRESENT ILLNESS: Mr. Mosquera is a 21-year-old male who was admitted with recurrent abdominal pain and was found to have a vasculitic rash. I have been asked to evaluate for potential rheumatologic etiology of his symptoms. He had previously been in a good state of health until late last month around the when he presented with a sudden onset of periumbilical pain which radiated to the right lower quadrant region. During this time, he also complained of diffuse muscle aches and spams and discomfort as well as cramps and this was mostly at night. However, he did not have any joint swelling. He also did describe round this time intermittent testicular swelling and discomfort which occurred only twice. He was felt initially to possibly have appendicitis and he was seen at [place]. He had a CT of the abdomen and pelvis at that time which noticed some thickening of the bowel and several loops of small bowel in the right lower quadrant region. It was felt that he might have an underlying inflammatory process. There was also a concern for possible underlying colitis. He was admitted further to [facility] for evaluation at that time and was seen by Dr. Viramontes. He had a small bowel series with Gastrografin. He underwent this test, which revealed a transient time to the small bowel being within normal limits, but he did have mild mucosal edematous changes noted in the ileal region with sparing of the terminal ileum. It was felt to be consistent with ileitis. He was felt to possibly have an underlying inflammatory bowel disease and he was started on a prednisone taper with the plan to follow up with Dr. Viramontes as an outpatient. During this period of time, his abdominal pain did improve, but he continued to have some diarrhea and loose stools but no obvious signs of infection. At the end of the 1st week, his abdominal pain resolved. He did develop a rash which progressed from the lower extremities to the upper extremities which is now fading. This occurred while he was on steroids. It progressed to the point initially, however, that it was quite prominent and therefore he presented to the urgent care for evaluation of the rash. This felt that the rash initially might be an extraintestinal manifestations of Crohn 's or some other inflammatory bowel disease and he was recommended that he continue on his prednisone taper and follow up with Dr. Viramontes. However, he presented with significant abdominal pain which was recurrent on the 7th of this month. He states that he woke up at that time with several episodes of diarrhea, which was nonbloody as well as 2 to 3 episodes of vomiting. He has had no preceding sore throat. He does not recall any prior upper respiratory infection and he denies any fevers or chills. 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 His appetite had been well until the episode of his recurrent abdominal pain. He denies frequent diarrhea. His abdominal pain has slightly improved today. He has had some recent biopsies of the intestinal region and he is tentatively planning to get another CT scan of the abdomen and pelvis as ordered by GI. Given a rash, it was felt that he may have an underlying vasculitic type process, it is fading. The workup has included a urinalysis which was clear but there was a presence of ascorbic acid which may interfere with the detection of blood. PAST MEDICAL HISTORY: Notable for the possible ileitis as noted above but otherwise he has been healthy. PAST SURGICAL HISTORY: None. MEDICATIONS: Medications as an outpatient have Includes: 1. Fish oil. 2. Men's One a Day multivitamin. 3. He was tentatively on prednisone taper and this is being held currently. ALLERGIES: No known drug allergies. FAMILY HISTORY: There is remote family history that was confirmed by his mother today who is in the room of a relative with fibromyalgia but there are no other autoimmune conditions in the family. His father is living but his father has a history of throat cancer. SOCIAL HISTORY: He does not smoke. He drinks 1 to 2 beers approximately once a week. 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 He is , he has small child. REVIEW OF SYSTEMS: General: Mild fatigue but is improving. He is a little bit sleepy from his recent procedure. Pulmonary: Denies shortness of breath. Cardiac: Denies chest wall pain. Abdomen: As per above with abdominal pain which is gradually improving. Skin: Notable for the vasculitis appearing rash which is gradually improving. Musculoskeletal: Denies joint swelling or joint pain. Neurologic: He does have a history of muscle cramps but this is improving. Genitourinary: History of testicular swelling but this has improved as well too. GI: Denies blood in the urine or stools. : Denies blood in the urine. Lymph: Denies adenopathy. Endocrine: Denies thyroid swelling. Psych: denies depression. Other 14-point review of systems were reviewed and were otherwise negative. PHYSICAL EXAM: He is pleasant male in no acute distress. He was able to answer questions appropriately and explain his history. His mother also assists with his history. His temperature is 98.8 with blood pressure 146/70 to 150/82 and O2 sats 98% to 99%. He was afebrile now. Heart rate of 73. General: No acute distress. Eyes: No scleral icterus. Mucous membranes were moist. Lungs were clear to auscultation bilaterally. Normal respiratory effort. Cardiovascular exam revealed a regular rate and rhythm. Normal S1 and S2. No S3 or S4. No edema. Abdomen: Positive bowel sounds with no organomegaly. No hepatosplenomegaly. No distention. He did have mild tenderness on deep palpation of the right upper quadrant but otherwise was nontender with no guarding or rebound. Extremities: No edema. No clubbing or cyanosis. Skin Exam: He did have fading vasculitic appearing rash with palpable purpura scattered across the lower extremities, abdominal region, and also the inner aspect of his upper arms. Neurologic: He was alert and oriented x3. Musculoskeletal: No synovitis. Endocrine: No glandular swelling. Hematologic: No bruising. Lymph: No adenopathy. : No CVA tenderness. Motor strength was 5/5 in the upper and lower extremities. DIAGNOSTIC STUDIES/LAB DATA: He had white count of 17.2, hemoglobin of 14, BUN 16, creatinine 0.91. He has had stool studies which have been negative. He had a colonoscopy that did not show any evidence of Crohn's, but did reveal possible ischemic changes of the ileum which spare the terminal ileum. His platelet count was 284,000 and his sodium is 137. His total CK was 563 with the C-reactive protein of 19.37. ALT of 53. B12 was 360. Urinalysis revealed specific gravity of 1.032. C. diff toxin was negative. ASSESSMENT AND PLAN: He is a 21-year-old male with recent onset of abdominal pain beginning several weeks ago who was felt to have inflammatory bowel disease as the inflammatory changes of the ileum but which spared the terminal ileum. However, more recently he has had recurrent abdominal pain while on steroids and he had vasculitic rash which seems to be gradually fading. At this point, I am concerned about an underlying vasculitic type process. An inflammatory bowel disease is being considered, also could concern atypical form of HSP, although he does not have hematuria; a case report was described of HSP causing ileitis but it did in the case report involve the terminal ileum. I agree with checking for connective tissue disorders including lupus as well as serologic studies for vasculitis including an ANCA. I would also consider checking a cryoglobulin. I would also check an IgA level. It should be noted that Henoch-Schonlein purpura has been associated with inflammatory lesions at the terminal ileum which can be difficult to distinguish from Crohn' s. Hopefully, this will of course be a self-limiting process for him in terms of steroid treatment. I think, it would be reasonable to resume steroids, although this could potentially be held in light of his recent studies that are still pending at this time including repeat biopsies and repeat CT scan. If these were unrevealing, consider restarting prednisone probably around 40 mg daily and then gradually tapering this down but he may only need a short taper especially if this is just a self-limiting process. I will continue to follow daily. In terms of his elevated CPK, we will check CK isoforms. If his CK rises and he develops muscular weakness, consider a muscle biopsy for myositis although his CK elevation may be related to recent GI events and dehydration. He will continue fluid intake to prevent rhabdomyolysis In terms of his vasculitic rash, we will check antibodies for a connective tissue disorder and cryoglobulins [id number]/[facility] #: [id number] [facility]
--- NOTE | 2017-05-02 02:05 | PRO ---
DATE: 05/01/17 REFERRING PHYSICIANS: Kirill Chery; Jonah Strong PROCEDURES: Upper gastrointestinal endoscopy, CLOtest, and biopsy, third portion of duodenum; colonoscopy and ileoscopy with biopsy of inflamed ileal segments at 30 cm and 20 cm. INDICATION: This 21-year-old man has had abdominal pain and some variable loose stools, vomiting, flaring of abdominal pain, and a rash since 04/17/17. He is here for consultation. He tolerated the Colyte prep for today's colonoscopy just fine and actually said he would prefer that than the Gastrografin he had for a modified small bowel follow- through at [facility] on 04/20/17. He had imaging at [facility] and that is on request, but administratively unavailable over the weekend. ENDOSCOPIST: Dr. Lucas MEDICATIONS: Midazolam 16, meperidine 150 with excellent tolerance. FINDINGS: EGD: Larynx - limited views are normal. Esophagus - easily entered and the mucosa is normal in the upper, mid, and lower esophagus, EG junction at 42. There were no abnormalities. Stomach - generally normal mucosa in the cardia, fundus, body, and antrum. A CLOtest taken in the mid greater curvature. Duodenum - normal pylorus, bulb, and second through fourth portions with 2 biopsies taken from descending duodenum. COLONOSCOPY: Initial views show an excellent prep and normal mucosa. No blood is seen. The adult scope was passes easily through the rectosigmoid, sigmoid, descending, transverse, and right colon with all areas very normal. There were no erosions or areas of granular change or any abnormality whatsoever. The ileocecal valve appeared normal. On entering the valve, the most terminal ileum had a slightly irritated appearance with the mucosa, ruffled or tufted and not smooth. It resisted smooth effacement with carbon dioxide insufflation. Beginning at about 12 to 13 cm, there was loni erythema with some granular change and a few erosions. At 25 to 30 cm, there was an abrupt transition to a dusky purplish blue mucosa appearing analogous to ischemic colitis. There was no active bleeding. Some normal-appearing bile stained mucus was coming from above having a deep leroy creamy color. Again, there was no active bleeding. The appearance was clearly against attempting deeper insertion. Three biopsies were taken from this dusky segment staying superficial and labeled 30 cm. Other biopsies from erythematous granular area with small erosions was labeled 20 cm. No biopsies were taken from the colon, which appeared entirely normal. During slow withdrawal, there were no findings in the colon and this included rectal retroflexion. IMPRESSION: 1. Normal gastroscopy. 2. Normal colonoscopy. 3. Ileitis, increasing in severity as one ascends the ileum, the proximal extent is not possible to define given the rapidly progressive severity. The appearance is not typical of Crohn's disease, but would be more compatible with vasculitis or some sort of vascular interruption or compromise to the ileum. Intussusception would be a consideration except it does not appear to have a lead point and the imaging reports forwarded from [place] do not suggest that. Hopefully they can be scanned into the PACS system soon. The biopsies hopefully will be helpful and may still show evidence for Crohn's. An urgent Rheumatology consult and skin biopsy may be helpful. The initial treatment of prednisone may very well be the best choice even if the etiology of underlying problem is felt to be different. Further discussion is pending Rheumatology consult. At this time, the patient is actually feeling reasonably well, but another CT scan with contrast to help define extent of the problem now after 11 or 12 days would be useful. [id number]/[facility] #: [id number] MTDD
[2017-05-02] MEDS: NS 0.9% 1000 ML* 1,000 ML IV SCH (07:26)
--- NOTE | 2017-05-02 08:52 | PN ---
Subjective Date of Service: 05/02/17 Interval History: Pt is feeling better today. He denies abdominal pain to me but nursing states he was complaining of mild L sided discomfort. He had a liquid yellow BM this AM. No bleeding. He thinks his rash has faded slightly. Objective Active Medications: Acetaminophen (Tylenol Tab*) 650 mg PO Q4H PRN PRN Reason: PAIN Hydrocodone Bitart/Acetaminophen ([facility] 5-325 Tab*) 1 tab PO Q4H PRN PRN Reason: PAIN Last Admin: 04/29/17 23:56 Dose: 1 tab Sodium Chloride (Ns 0.9% 1000 Ml*) 1,000 mls @ 100 mls/hr IV PER RATE ANGELA Last Admin: 05/02/17 07:26 Dose: 100 mls/hr Iohexol (Omnipaque 300* (Contrast)) 150 ml IV ONCE ANGELA Stop: 05/03/17 16:27 Last Admin: 05/01/17 17:01 Dose: 150 ml Morphine Sulfate (Morphine Inj (Syringe)*) 4 mg IV Q4H PRN PRN Reason: PAIN - MILD Last Admin: 04/30/17 13:10 Dose: 4 mg Ondansetron HCl (Zofran Inj*) 4 mg IV Q6H PRN PRN Reason: NAUSEA Prednisone (Deltasone Tab*) 40 mg PO DAILY [facility] Vital Signs 05/01/17 05/01/17 05/01/17 14:18 14:20 15:18 Temperature 98.1 F 98.1 F 97.4 F Pulse Rate 75 75 66 Respiratory 18 18 16 Rate Blood Pressure 144/74 144/74 136/68 (mmHg) O2 Sat by Pulse 98 98 98 Oximetry 05/01/17 05/01/17 05/01/17 16:00 16:02 18:09 Temperature 98.6 F 98.6 F 97.6 F Pulse Rate 69 69 86 Respiratory 16 16 16 Rate Blood Pressure 134/67 134/67 133/74 (mmHg) O2 Sat by Pulse 99 99 98 Oximetry 05/01/17 05/01/17 05/01/17 19:30 20:00 23:15 Temperature 98.5 F 98.5 F Pulse Rate 85 82 Respiratory 20 16 24 Rate Blood Pressure 129/67 122/67 (mmHg) O2 Sat by Pulse 100 99 Oximetry 05/02/17 05/02/1705/02/17 03:18 07:29 07:30 Temperature 98.6 F 98.6 F Pulse Rate 85 85 Respiratory 20 18 18 Rate Blood Pressure 132/69 131/68 (mmHg) O2 Sat by Pulse 98 97 Oximetry Oxygen Devices in Use Now: None Appearance: Young male sitting up in bed, NAD Eyes: No Scleral Icterus Ears/Nose/Mouth/Throat: Mucous Membranes Moist Respiratory: Symmetrical Chest Expansion and Respiratory Effort, Clear to Auscultation Cardiovascular: NL Sounds; No Murmurs; No JVD, RRR, No Edema Abdominal: - - BS+ soft, NT, ND Extremities: No Clubbing, Cyanosis Skin: No Nodules or Sclerosis, - - rash to LE, abdomen, arms fading Neurological: Alert and Oriented x 3 Result Diagrams: 04/30/17 05:30 04/29/17 11:47 Additional Lab and Data: Lab Results 04/29/17 04/29/17 04/29/17 Range/Units 11:47 11:47 11:47 WBC 18.3 H (3.5-10.8) 10^3/ul RBC 4.84 (4.0-5.4) 10^6/ul Hgb 15.4 (14.0-18.0) g/dl Hct 45 (42-52) % MCV 93 (80-94) fL MCH 32 H (27-31) pg MCHC 34 (31-36) g/dl RDW 13 (10.5-15) % Plt Count 295 (150-450) 10^3/ul MPV 7 L (7.4-10.4) um3 Neut % (Auto) 83.1 H (38-83) % Lymph % (Auto) 8.2 L (25-47) % [place] % (Auto) 7.6 (1-9) % Eos % (Auto) 0.9 (0-6) % Baso % (Auto) 0.2 (0-2) % Absolute Neuts (auto) 15.2 H (1.5-7.7) 10^3/ul Absolute Lymphs (auto) 1.5 (1.0-4.8) 10^3/ul Absolute Monos (auto) 1.4 H (0-0.8) 10^3/ul Absolute Eos (auto) 0.2 (0-0.6) 10^3/ul Absolute Basos (auto) 0 (0-0.2) 10^3/ul Absolute Nucleated RBC 0 10^3/ul Nucleated RBC % 0 Sodium 137 (133-145) mmol/L Potassium 4.0 (3.5-5.0) mmol/L Chloride 103 (101-111) mmol/L Carbon Dioxide 26 (22-32) mmol/L Anion Gap 8 (2-11) mmol/L BUN 16 (6-24) mg/dL Creatinine 0.91 (0.67-1.17) mg/dL Est GFR ( Amer) 132.8 (>60) Est GFR (Non-Af Amer) 103.2 (>60) BUN/Creatinine Ratio 17.6 (8-20) Glucose 95 (70-100) mg/dL Lactic Acid 1.5 (0.5-2.0) mmol/L Calcium 9.2 (8.6-10.3) mg/dL Magnesium 2.2 (1.9-2.7) mg/dL Total Bilirubin 0.50 (0.2-1.0) mg/dL AST 37 (13-39) U/L ALT 53 H (7-52) U/L Alkaline Phosphatase 65 (34-104) U/L Total Creatine Kinase 563 H (10-223) U/L C-Reactive Protein 19.37 H (< 5.00) mg/L Total Protein 7.6 (6.4-8.9) g/dL Albumin 4.1 (3.2-5.2) g/dL Globulin 3.5 (2-4) g/dL Albumin/Globulin Ratio 1.2 (1-3) Lipase 17 (11.0-82.0) U/L Microbiology and Other Data: Microbiology 04/30/17 22:00 Stool Gross Appearance - Final Stool 04/30/17 22:00 Stool Gross Appearance - Final Stool C. difficile DNA Amplification - Final 027 Presumptive NEGATIVE Toxigenic C.diff NEGATIVE Stool Lactoferrin - Final Stool Occult Blood (ADRI) - Final Assess/Plan/Problems-Billing Mr Mosquera is a 21 yo M who began to have abdominal pain a couple weeks ago, was admitted to [facility] where he was given a presumptive dx of Crohn's, was feeling better, developed rash and then developed severe abdominal pain again and presented to [facility] and was admitted for evaluation. - Patient Problems (1) Ileitis Current Visit: Yes Status: Acute Code(s): K52.9 - NONINFECTIVE GASTROENTERITIS AND COLITIS, UNSPECIFIED SNOMED Code(s): 00619141 Comment: The patient underwent colonoscopy yesterday that did not show evidence of Crohn's but did reveal ?ischemia of the ileum (spares the terminal ileum). Dr. Strong saw the patient and agrees that he likely has a vasculitis process. Will monitor tolerance of a soft diet. I have started oral prednisone 40mg daily per Dr. Strong's recommendations. (2) Palpable purpura Current Visit: Yes Status: Acute Code(s): D69.2 - OTHER NONTHROMBOCYTOPENIC PURPURA SNOMED Code(s): 204133004 Comment: Appreciate rheumatology eval. Additional lab testing has been sent and is pending. FLORA, ANCA negative. Start prednisone 40mg daily. (3) DVT prophylaxis Current Visit: Yes Status: Acute Code(s): ITC3974 - SNOMED Code(s): 060814130 Comment: ambulation (4) Full code status Current Visit: Yes Status: Acute Code(s): Z78.9 - OTHER SPECIFIED HEALTH STATUS SNOMED Code(s): 044300464
[2017-05-02] MEDS: predniSONE TAB* 20 MG PO SCH (08:58)
--- NOTE | 2017-05-02 10:38 | PN ---
Subjective - Subjective Reason for Note: Progress Note History: Date of service 05/02/2017. Chief complaint: vasculitis. Overall Mr. Mosquera feels very well. He denied any abdominal pain. His rash has improved. Prednisone is to be re-started today Active Problems: Active Problems DVT prophylaxis (Acute) [id number] ambulation Full code status (Acute) Z78.9 Ileitis (Acute) K52.9 The patient underwent colonoscopy yesterday that did not show evidence of Crohn 's but did reveal ?ischemia of the ileum (spares the terminal ileum). Dr. Strong saw the patient and agrees that he likely has a vasculitis process. Will monitor tolerance of a soft diet. I have started oral prednisone 40mg daily per Dr. Strong's recommendations. Palpable purpura (Acute) D69.2 Appreciate rheumatology eval. Additional lab testing has been sent and is pending. FLORA, ANCA negative. Start prednisone 40mg daily. Current Medications: Current Medications Acetaminophen (Tylenol Tab*) 650 mg PO Q4H PRN PRN Reason: PAIN Hydrocodone Bitart/Acetaminophen ([place] 5-325 Tab*) 1 tab PO Q4H PRN PRN Reason: PAIN Last Admin: 04/29/17 23:56 Dose: 1 tab Sodium Chloride (Ns 0.9% 1000 Ml*) 1,000 mls @ 100 mls/hr IV PER RATE [facility] Last Admin: 05/02/17 07:26 Dose: 100 mls/hr Iohexol (Omnipaque 300* (Contrast)) 150 ml IV ONCE ANGELA Stop: 05/03/17 16:27 Last Admin: 05/01/17 17:01 Dose: 150 ml Morphine Sulfate (Morphine Inj (Syringe)*) 4 mg IV Q4H PRN PRN Reason: PAIN - MILD Last Admin: 04/30/17 13:10 Dose: 4 mg Ondansetron HCl (Zofran Inj*) 4 mg IV Q6H PRN PRN Reason: NAUSEA Prednisone (Deltasone Tab*) 40 mg PO DAILY [facility] Last Admin: 05/02/17 08:58 Dose: 40 mg - Review of Systems Constitutional Symptoms: No: Weight Gain, Weight Loss, Weakness, Fatigue, Fever , Night Sweats, Unexplained Falls Dermatology: Skin Lesions: No HEENT: No Vertigo Eyes: Positive: Normal Thyroid: Positive: Normal Pulmonary: Positive: Normal Cardiology: Positive: Normal Gastroenterology: Positive: Normal Endocrinology: Positive: Normal Neurology: Positive: Normal Home Medications: Home Medications Medication Instructions Recorded Confirmed Type Multiple Vitamins W/ Minerals 1 tab PO DAILY 04/19/17 04/29/17 History [Multivitamin Adults] [place]-3 Fatty Acids [Fish Oil] 500 mg PO DAILY 04/19/17 04/29/17 History Pantoprazole TAB (NF) [Protonix 1 tab PO DAILY 04/28/17 04/29/17 History TAB (NF)] predniSONE TAB* [Deltasone TAB*] 20 mg PO DAILY 04/28/17 04/29/17 History Allergies: Allergies Allergy/AdvReac Type Severity Reaction Status Date / Time No Known Allergies Allergy Verified 04/28/17 12:43 Objective - Vital Signs Vital Signs: Vital Signs 05/01/17 05/01/17 05/01/17 14:18 14:20 15:18 Temperature 98.1 F 98.1 F 97.4 F Pulse Rate 75 75 66 Respiratory 18 18 16 Rate Blood Pressure 144/74 144/74 136/68 (mmHg) O2 Sat by Pulse 98 98 98 Oximetry 05/01/17 05/01/17 05/01/17 16:00 16:02 18:09 Temperature 98.6 F 98.6 F 97.6 F Pulse Rate 69 69 86 Respiratory 16 16 16 Rate Blood Pressure 134/67 134/67 133/74 (mmHg) O2 Sat by Pulse 99 99 98 Oximetry 05/01/17 05/01/17 05/01/17 19:30 20:00 23:15 Temperature 98.5 F 98.5 F Pulse Rate 85 82 Respiratory 20 16 24 Rate Blood Pressure 129/67 122/67 (mmHg) O2 Sat by Pulse 100 99 Oximetry 05/02/17 05/02/17 05/02/17 03:18 07:29 07:30 Temperature 98.6 F 98.6 F Pulse Rate 85 85 Respiratory 20 18 18 Rate Blood Pressure 132/69 131/68 (mmHg) O2 Sat by Pulse 98 97 Oximetry - Intake and Output Intake and Output: Intake & Output 04/30/17 05/01/17 05/02/17 05/03/17 06:59 06:59 06:59 06:59 Intake Total 2350 1200 1815 Balance 2350 1200 1815 Weight 276 lb Intake: IV Fluids 1999 700 1815 NS (0.9%) 700 1815 IVPB 110 Oral 240 500 Other: Estimated Void Medium Medium # Bowel Movements 0 0 # Voids 1 3 ADLs: Meal Record Start: 04/29/17 14: 25 Freq: DAILY@0900,1400,1800 Status: Active Document 04/29/17 21:32 [id number] (Rec: 04/29/17 21:32 [id number] MED-M04) Document 04/30/17 09:00 [id number] (Rec: 04/30/17 13:58 [id number] MED-C11) Document 04/30/17 14:00 [id number] (Rec: 04/30/17 17:05 [id number] MED-C15) Document 05/01/17 09:00 [id number] (Rec: 05/01/17 09:56 [id number] MED-C09) Document 05/01/17 14:00 [id number] (Rec: 05/01/17 14:08 [id number] MED-C09) Document 05/01/17 18:00 [id number] (Rec: 05/01/17 21:23 [id number] MED-C09) Intake and Output Start: 04/29/17 14: 25 Freq: DAILY@0600,1400,2200 Status: Active Document 04/29/17 22:00 [id number] (Rec: 04/29/17 22:18 [id number] MED-C11) Document 04/30/17 05:56 [id number] (Rec: 04/30/17 05:57 [id number] MEDL-C01) Document 04/30/17 13:57 [id number] (Rec: 04/30/17 13:58 [id number] MED-C11) Document 04/30/17 21:55 [id number] (Rec: 04/30/17 21:56 [id number] MED-C11) Document 05/01/17 04:36 [id number] (Rec: 05/01/17 04:38 [id number] MEDL-C01) Document 05/01/17 14:00 [id number] (Rec: 05/01/17 14:08 [id number] MED-C09) Document 05/01/17 21:23 [id number] (Rec: 05/01/17 21:23 [id number] MED-C09) Document 05/02/17 06:00 [id number] (Rec: 05/02/17 06:32 [id number] MEDL-C02) - Physical Exam General Physical Exam Comment: No acute distress Eye Exam: bilateral: PERRLA, EOMI Head: Yes Normocephalic Ear Exam: bilateral ear: Normal Thyroid Function: Clinically Euthyroid Lungs and Chest: Yes: Chest Expansion Full, Chest Expansion Symetrica, Percussion Note Resonant Heart Rate and Rhythm: Regular JVP: Not Elevated [place] Beat: Non Displaced Additional Cardiovascular: Yes: [place] Beat not Displaced Abdominal Exam: Yes: Soft, Bowel Sounds Present - Extremities Posterior Tibial Pulse: Bilateral Normal Dorsalis Pedis Pulses: Bilateral Normal - Neuro Psychiatric: Normal, Affect/Mood Appropriate Results - Results Lab Results: Laboratory Results - last 24 hr 05/01/17 05/01/17 15:55 15:56 ESR 25 H C-Reactive Protein 54.04 H Assessment - Problem List Assessment: Patient Problems DVT prophylaxis (Acute) Full code status (Acute) Ileitis (Acute) Palpable purpura (Acute) Plan: Colitis: possible inflammatory bowel disease per CT scan results. GI biopsy results pending. Prednisone to be re started. Rash: seems to have completely faded. FLORA and ANCA are negative. Elevated CK: would follow Elevated CRP: seems to be rising despite clinical improvement; would follow He will need a gradual steroid taper and if he has an inflammatory bowel disease , may consider immunomodulating therapy per GI
[2017-05-03 06:23] LABS: Hematocrit 39 % (42-52); Hemoglobin 13.2 g/dl (14.0-18.0); Mean Corpuscular HGB Conc 34 g/dl (31-36); Mean Corpuscular Hemoglobin 32 pg (27-31); Mean Corpuscular Volume 93 fL (80-94); Mean Platelet Volume 7 um3 (7.4-10.4); Red Blood Count 4.17 10^6/ul (4.0-5.4); Red Cell Distribution Width 12 % (10.5-15)
[2017-05-03 06:42] LABS: Albumin 3.7 g/dL (3.2-5.2); BUN/Creatinine Ratio 13.9 (8-20); C Reactive Protein 44.38 mg/L (< 5.00); EGFR African American 117.7 (>60); EGFR Non-African American 91.5 (>60); Total Bilirubin 0.3 mg/dL (0.2-1.0); Total Protein 6.7 g/dL (6.4-8.9)
[2017-05-03 07:09] LABS: Erythrocyte Sed Rate 33 mm/Hr (0-14)
[2017-05-03 07:33] VITALS: BP 121/66
--- NOTE | 2017-05-03 09:06 | PN ---
Subjective Date of Service: 05/03/17 Interval History: Pt is feeling well. He denies any abdominal pain and states he has not had any BMs recently. He is anxious to go home. Objective Active Medications: Acetaminophen (Tylenol Tab*) 650 mg PO Q4H PRN PRN Reason: PAIN Hydrocodone Bitart/Acetaminophen ([place] 5-325 Tab*) 1 tab PO Q4H PRN PRN Reason: PAIN Last Admin: 04/29/17 23:56 Dose: 1 tab Iohexol (Omnipaque 300* (Contrast)) 150 ml IV ONCE [facility] Stop: 05/03/17 16:27 Last Admin: 05/01/17 17:01 Dose: 150 ml Morphine Sulfate (Morphine Inj (Syringe)*) 4 mg IV Q4H PRN PRN Reason: PAIN - MILD Last Admin: 04/30/17 13:10 Dose: 4 mg Ondansetron HCl (Zofran Inj*) 4 mg IV Q6H PRN PRN Reason: NAUSEA Prednisone (Deltasone Tab*) 40 mg PO DAILY [facility] Last Admin: 05/02/17 08:58 Dose: 40 mg Vital Signs 05/02/17 05/02/17 05/02/17 11:23 15:50 20:00 Temperature 99.1 F 98.8 F Pulse Rate 73 93 Respiratory 18 22 18 Rate Blood Pressure 127/68 136/70 (mmHg) O2 Sat by Pulse 98 96 Oximetry 05/02/17 05/02/17 05/03/17 21:04 23:49 03:49 Temperature 98.8 F 98.4 F 98.3 F Pulse Rate 85 78 70 Respiratory 20 17 17 Rate Blood Pressure 144/69 143/70 141/71 (mmHg) O2 Sat by Pulse 98 97 99 Oximetry 05/03/17 07:32 Temperature 98.2 F Pulse Rate 64 Respiratory 17 Rate Blood Pressure 121/66 (mmHg) O2 Sat by Pulse 98 Oximetry Oxygen Devices in Use Now: None Appearance: Young male sitting up in bed, NAD Eyes: No Scleral Icterus Ears/Nose/Mouth/Throat: Mucous Membranes Moist Respiratory: Symmetrical Chest Expansion and Respiratory Effort, Clear to Auscultation Cardiovascular: NL Sounds; No Murmurs; No JVD, RRR, No Edema Abdominal: NL Sounds; No Tenderness; No Distention Extremities: No Clubbing, Cyanosis Skin: No Rash or Ulcers, No Nodules or Sclerosis Neurological: Alert and Oriented x 3 Result Diagrams: 05/03/17 05:52 05/03/17 05:52 Additional Lab and Data: Lab Results 04/29/17 04/29/17 04/29/17 Range/Units 11:47 11:47 11:47 WBC 18.3 H (3.5-10.8) 10^3/ul RBC 4.84 (4.0-5.4) 10^6/ul Hgb 15.4 (14.0-18.0) g/dl Hct 45 (42-52) % MCV 93 (80-94) fL MCH 32 H (27-31) pg MCHC 34 (31-36) g/dl RDW 13 (10.5-15) % Plt Count 295 (150-450) 10^3/ul MPV 7 L (7.4-10.4) um3 Neut % (Auto) 83.1 H (38-83) % Lymph % (Auto) 8.2 L (25-47) % [place] % (Auto) 7.6 (1-9) % Eos % (Auto) 0.9 (0-6) % Baso % (Auto) 0.2 (0-2) % Absolute Neuts (auto) 15.2 H (1.5-7.7) 10^3/ul Absolute Lymphs (auto) 1.5 (1.0-4.8) 10^3/ul Absolute Monos (auto) 1.4 H (0-0.8) 10^3/ul Absolute Eos (auto) 0.2 (0-0.6) 10^3/ul Absolute Basos (auto) 0 (0-0.2) 10^3/ul Absolute Nucleated RBC 0 10^3/ul Nucleated RBC % 0 Sodium 137 (133-145) mmol/L Potassium 4.0 (3.5-5.0) mmol/L Chloride 103 (101-111) mmol/L Carbon Dioxide 26 (22-32) mmol/L Anion Gap 8 (2-11) mmol/L BUN 16 (6-24) mg/dL Creatinine 0.91 (0.67-1.17) mg/dL Est GFR ( Amer) 132.8 (>60) Est GFR (Non-Af Amer) 103.2 (>60) BUN/Creatinine Ratio 17.6 (8-20) Glucose 95 (70-100) mg/dL Lactic Acid 1.5 (0.5-2.0) mmol/L Calcium 9.2 (8.6-10.3) mg/dL Magnesium 2.2 (1.9-2.7) mg/dL Total Bilirubin 0.50 (0.2-1.0) mg/dL AST 37 (13-39) U/L ALT 53 H (7-52) U/L Alkaline Phosphatase 65 (34-104) U/L Total Creatine Kinase 563 H (10-223) U/L C-Reactive Protein 19.37 H (< 5.00) mg/L Total Protein 7.6 (6.4-8.9) g/dL Albumin 4.1 (3.2-5.2) g/dL Globulin 3.5 (2-4) g/dL Albumin/Globulin Ratio 1.2 (1-3) Lipase 17 (11.0-82.0) U/L Microbiology and Other Data: Microbiology 04/30/17 22:00 Stool Gross Appearance - Final Stool 04/30/17 22:00 Stool Gross Appearance - Final Stool C. difficile DNA Amplification - Final 027 Presumptive NEGATIVE Toxigenic C.diff NEGATIVE Stool Lactoferrin - Final Stool Occult Blood (ADRI) - Final Assess/Plan/Problems-Billing Mr Mosquera is a 21 yo M who began to have abdominal pain a couple weeks ago, was admitted to [facility] where he was given a presumptive dx of Crohn's, was feeling better, developed rash and then developed severe abdominal pain again and presented to [facility] and was admitted for evaluation. - Patient Problems (1) Ileitis Current Visit: Yes Status: Acute Code(s): K52.9 - NONINFECTIVE GASTROENTERITIS AND COLITIS, UNSPECIFIED SNOMED Code(s): 43026627 Comment: Pathology is pending from the colonoscopy biopsies. Will continue prednisone 40mg daily. He has a follow up with Dr. Viramontes tomorrow. Await pathology. Continue bland soft diet. (2) Palpable purpura Current Visit: Yes Status: Acute Code(s): D69.2 - OTHER NONTHROMBOCYTOPENIC PURPURA SNOMED Code(s): 763567418 Comment: Rash is improving. Will try to get punch biopsy this AM prior to d/ c. Continue prednisone and follow up with Dr. Strong as outpatient. (3) DVT prophylaxis Current Visit: Yes Status: Acute Code(s): [id number] - SNOMED Code(s): 083343281 Comment: ambulation (4) Full code status Current Visit: Yes Status: Acute Code(s): Z78.9 - OTHER SPECIFIED HEALTH STATUS SNOMED Code(s): 418329369
[2017-05-03] MEDS: predniSONE TAB* 20 MG PO SCH (09:40)
--- NOTE | 2017-05-04 05:36 | DS ---
CC: Dr. Chery * DISCHARGE SUMMARY: DATE OF ADMISSION: 04/29/17 DATE OF DISCHARGE: 05/03/17 PRIMARY CARE PROVIDER: Dr. Chery. ENERGY BROKER: Dr. Viramontes. AMPOULE INSPECTOR: Dr. Strong. 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 DISCHARGE MEDICATIONS: 1. Prednisone 40 mg p.o. daily x4 days , then 30 mg x4 days, then 20 mg x4 days , then 10 mg x4 days. 2. Protonix 20 mg p.o. daily. 3. [place] 3 fatty acid 500 mg p.o. daily. 4. Multivitamin 1 tab p.o. daily. 5. Tylenol 650 mg p.o. q.4 hours p.r.n. pain. HOSPITAL COURSE: Mr. Mosquera is a 21-year-old male, who was recently admitted to [facility] where he was given a presumptive diagnosis of Crohn's disease following imaging of the abdomen that revealed inflammation of the ileum , but sparing the terminal ileum. The patient over the course of the next couple of weeks developed rash initially on his legs spreading up to his abdomen and arms. On 04/29/17, the patient developed severe abdominal pain and represented to [facility] for evaluation. At that point, the patient was admitted and started on clear liquid diet and started on IV antibiotics as it was not clear that the patient in fact had Crohn's disease. The patient was seen in consultation by Dr. Lucas who ultimately performed EGD and colonoscopy on 05/01/17. The EGD was essentially normal. The patient's colonoscopy revealed a normal colon; however, in the ileum (not the terminal ileum), the patient was found to have what appeared to be ischemia. Giving this finding as well as palpable purpura on the patient's lower extremity, abdomen and arms, the decision was made to follow with Dr. Strong. Dr. Strong saw the patient in consultation on 05/01/17 and recommended reinitiating prednisone. He also sent off numerous other lab tests all of which are pending at the time of this dictation. The patient's rash is fading at this point. He has been able to tolerate now a soft bland diet without any worsened abdominal pain. He is not having any diarrhea. At this point, the patient is felt to be stable for discharge home. He did have a punch biopsy of his rash done just prior to discharge. The results of this are too pending. I have asked that the patient follow up either with Dr. Viramontes who saw the patient first from in the [facility] or with Dr. Lucas, who did his scopes. Additionally, I have recommended that the patient follow up with Dr. Strong and have an appointment scheduled for 05/11/17 at 4:20 p.m. The patient should follow up with his primary care provider in the next 4 to 7 days. FOLLOWUP CONCERNS: The patient is being discharged home today on 05/03/17. ACTIVITY LEVEL: As tolerated. DIET: Soft bland. CONDITION ON DISCHARGE: Stable. TIME SPENT: 35 minutes were spent discharging this patient. [id number]/[facility] #: [id number] MTDD
--- NOTE | 2017-05-04 07:35 | PRO ---
AMENDED REPORT NOW INCLUDES DATE OF PROCEDURE - ESIGNED BEFORE ADJUSTMENT * CC: Dr. Kirill Chery at [facility]; Dr. Strong at [facility] Rheumatology * PROCEDURE NOTE: DATE OF PROCEDURE: 05/03/17 HISTORY: The patient was admitted with abdominal pain and was noted to have a purpuric rash involving the lower abdomen and lower extremities and to a lesser degree upper extremities. He had been recently seen and worked up in [place] and had a presumptive diagnosis of Crohn's disease. He was on Protonix and prednisone. He is planned for discharge today and we were asked to do a skin biopsy of the lower extremity rash. DESCRIPTION OF PROCEDURE: After consent and time-out, 2 separate agricultural sales representative areas of right lower extremity were anesthetized with 2% plain lidocaine. A 2-mm punch biopsy was performed from each of the areas and submitted in separate vials of formalin and Shad's solution for pathology. Hemostasis was obtained by direct pressure. The wounds were approximated with Steri-Strips and bandage applied. The patient tolerated the procedure well. KWADWO ARZOLA [id number]/[facility] #: [id number] [facility] CENTERRubia
[2017-05-04 15:08] LABS: Creatine Kinase 96 U/L (52 - 336)
[2017-05-04 15:18] LABS: SS-B/La Antibody <0.2 U; Sm (Smith) IgG Antibody <0.2 U; U1-nRNP Antibody <0.2 U
[2017-05-04 20:22] LABS: Tissue Transglutaminase IgA Ab <1.2 U/mL
[2017-05-05 22:32] LABS: Immunoglobulin A 243 mg/dL (61 - 356)
== END 2017-05-03 15:50 | disposition home or self-care (01) | DRG 246 ==
LOC: ED 08:58 → MED 13:41 → OBSVTOIN 04-30 16:30
PROVIDERS: ADMIT Hospitalist; ATTEND Hospitalist
PROC: 0DB98ZX Excision of Duodenum, Via Natural or Artificial Opening Endoscopic, Diagnostic (ICD-10-PCS; principal; 2017-05-01)
PROC: 0DJD8ZZ Inspection of Lower Intestinal Tract, Via Natural or Artificial Opening Endoscopic (ICD-10-PCS; 2017-05-01)
PROC: 0DB88ZX Excision of Small Intestine, Via Natural or Artificial Opening Endoscopic, Diagnostic (ICD-10-PCS; 2017-05-01)
PROC: 0HBKXZX Excision of Right Lower Leg Skin, External Approach, Diagnostic (ICD-10-PCS; 2017-05-03)
DX: K55.9 Vascular disorder of intestine, unspecified (principal); D69.2 Other nonthrombocytopenic purpura; K52.9 Noninfective gastroenteritis and colitis, unspecified; L95.9 Vasculitis limited to the skin, unspecified; E66.9 Obesity, unspecified; I10 Essential (primary) hypertension; Z79.52 Long term (current) use of systemic steroids
CPT/HCPCS: 36415; 74177; 80053; 81003; 82272; 82550; 82585; 82595; 82607; 82784; 83516; 83605; 83630; 83690; 83735; 85025; 85027; 85652; 86038; 86140; 86235; 86255; 86812; 87045; 87046; 87077; 87177; 87209; 87328; 87329; 87493; 87899; 88305; 88346; 88350; 90686; 99156; 99157; A9270-GY; J0744; J2250; J2270; J2310; J2405; J7512; Q9967